=== PATIENT | male | born 1995 | race Caucasian/White ===

== ENCOUNTER 2024-11-04 17:42 | Emergency (ER) | payer SELFPAY ==
[~2024-11-04] VITALS: Ht 167.6 cm; Wt 81.6 kg
[~2024-11-04 17:42] MED LIST: BACTRIM 400-801 EACH PO; CEPHALEXIN500 MG PO; Ibuprofen PO; METRONIDAZOLE500 MG PO; ONDANSETRON ODT4 MG PO; TYLENOL EXTRA500 MG PO; ULTRAM 50MG50 MG PO
[2024-11-04 18:22] VITALS: PULSE 76; RESP 18; TEMP 98.1; O2SAT 100
== END 2024-11-04 18:25 | disposition home or self-care (01) ==
LOC: ER 18:18
DX: Z48.02 Encounter for removal of sutures (principal)
CPT/HCPCS: 99281